=== PATIENT | female | born 1950 | race Caucasian/White ===

== ENCOUNTER 2016-11-15 21:47 | Emergency (ER) | payer BC ==
[2016-11-15 21:34] LABS: BASOPHILS 0.4 %; BASOPHILS ABSOLUTE 0.04 10/3/uL (0.0-0.16); EOSINOPHILS 2.6 %; EOSINOPHILS ABSOLUTE 0.28 10/3/uL (0.0-0.53); ER CBC TAT 0 Hrs 07 Mins; HEMATOCRIT 38.7 % (36.0-48.0); HEMOGLOBIN 13.5 g/dL (12.0-16.0); IMMATURE GRANULOCYTES 0.3 %; IMMATURE GRANULOCYTES ABSOLUTE 0.03 10/3/uL (0.0-0.11); LYMPHOCYTES 30.2 %; LYMPHOCYTES ABSOLUTE 3.27 10/3/uL (0.67-4.30); MANUAL DIFF NO %; MEAN CORPUS HGB CONC 34.9 g/dL (32.0-36.0); MEAN CORPUSCULAR HEMOGLOB 32.8 pg (26.0-34.0); MEAN CORPUSCULAR VOLUME 94.2 fL (80-100); MEAN PLATELET VOLUME 11.1 fL (9.2-13.0); MONOCYTES 10.3 %; MONOCYTES ABSOLUTE 1.12 10/3/uL (0.21-1.20); NEUTROPHILS 56.2 %; NEUTROPHILS ABSOLUTE 6.09 10/3/uL (2.02-8.40); PLATELET COUNT 285 10/3/uL (150-400); RBC DISTRIBUTION WIDTH 12.9 % (12.0-16.0); RED CELL COUNT 4.11 10/6/uL (4.0-5.6); WHITE BLOOD CELLS 10.8 10/3/uL (4.5-10.5)
[2016-11-15 21:42] LABS: INTERNATIONAL NORMAL RATI 1.1 UNITS (-); PARTIAL THROMBO TIME 29.1 SEC (22.5-37.2)
[2016-11-15 21:44] LABS: PROTIME (NOT ORD) 13.9 SEC (12.0-14.5)
[~2016-11-15 21:47] MED LIST: AMIT25 PO; CALCIUM-MAG-ZINC PO; CENTRUM PO; ESTRACE0.5 MG PO; FISH-EPA1000 MG PO; GARLIQUE PO; HAWTHORNE250 MG OR; HYGROTON 25 MG25 MG OR; MOBIC15 MG PO; PROVERA 2.5 MG2.5 MG OR; SYN.15 PO
[2016-11-15 21:54] LABS: BUN (BLOOD UREA NITROGEN) 29 MG/DL (6-23); CALCIUM, SERUM 9.5 MG/DL (8.5-10.4); CHEST PAIN PROFILE TAT 0 Hrs 27 Mins; CHLORIDE, SERUM 109 MMOL/L (96-112); CO2 (CARBON DIOXIDE) 26 MMOL/L (24-34); CREATININE 1.32 MG/DL (0.55-1.02); GFR AFRICAN AMERICAN 48 ML/MIN (>=60); GFR NON AFRICAN AMERICAN 42 ML/MIN (>=60); GLUCOSE, SERUM 119 MG/DL (60-99); SODIUM, SERUM 142 MMOL/L (135-148); TROPONIN I <0.02 NG/ML (<0.05); ULTRASENSITIVE TSH 0.483 MCIU/ML (0.358-3.740)
[2016-11-15] MEDS ORDERED: SYN.15 PO (22:46)
[2016-11-15] MEDS ORDERED: COREG6 PO (22:49)
[2016-11-15] MEDS ORDERED: SPIRO25 PO (22:51)
[2016-11-15] MEDS ORDERED: ESTRACE0.5 MG PO (22:52)
[2016-11-15] MEDS ORDERED: PROVERA 2.5 MG2.5 MG PO (22:53)
[2016-11-15] MEDS ORDERED: NORV5 PO (22:55)
[2016-11-15] MEDS ORDERED: MULTIVIT/MIN PO (22:56)
[2016-11-15] MEDS ORDERED: [UNRECOGNIZED DRUG - OTHER] PO (22:56)
[2016-11-15] MEDS ORDERED: [UNRECOGNIZED DRUG - OTHER] PO (22:57)
[2016-11-15] MEDS ORDERED: CITRACAL PO (22:57)
[2016-11-15] MEDS ORDERED: TUMERIC OTC PO (22:58)
[2016-11-15] MEDS ORDERED: PRIN10 PO (22:59)
== END 2016-11-16 00:51 | disposition home or self-care (01) ==
LOC: ER 21:47
PROVIDERS: Emergency Medicine
DX: I48.91 Unspecified atrial fibrillation (principal); I10 Essential (primary) hypertension; Z88.5 Allergy status to narcotic agent; Z88.1 Allergy status to other antibiotic agents; Z88.8 Allergy status to other drugs, medicaments and biological substances; Z91.038 Other insect allergy status; Z91.040 Latex allergy status; Z79.899 Other long term (current) drug therapy
CPT/HCPCS: 71010; 80048; 83735; 84443; 84484; 85025; 85610; 85730; 93005; 96374; 96376; 99285; A9270-GY